=== PATIENT | male | born 1945 | race Caucasian/White ===

== ENCOUNTER 2017-04-06 16:15 | Observation (INO) ==
[2017-04-06] MEDS ORDERED: SALINE FLUSH 10ml SYRINGE IVF PRN (16:49)
[2017-04-06 16:57] VITALS: BMI 29.2
[2017-04-06] MEDS ORDERED: ONDANSETRON 4 MG/2 ML INJECTION IVP PRN (17:09)
[2017-04-06] MEDS ORDERED: MORPHINE SULFATE 4 MG SYRINGE IVP PRN (17:09)
[2017-04-06] MEDS: LR 1,000 ML IV SCH (17:28)
[2017-04-06] MEDS: ERTAPENEM 1 G in NS 100 ML IV SCH (18:00)
[2017-04-07] MEDS: LR 1,000 ML IV SCH ×2 (03:50→14:44)
[2017-04-07] MEDS: ERTAPENEM 1 G in NS 100 ML IV SCH ×2 (09:22→16:59)
[2017-04-07] MEDS ORDERED: LR 1,000 ML IV PRN (11:16)
[2017-04-07] MEDS ORDERED: BUPIVACAINE 0.25%/EPI 1:200,000 30ml SDV ONE (12:08)
--- NOTE | 2017-04-07 12:25 | Anesthesia Preoperative Report ---
Anesthesia Preoperative Record - Date and Time Date: 04/07/17 Preoperative Diagnosis: acute appendicitis Proposed Procedure: Lap appendectomy NPO Since Date: 04/07/17 NPO Since Time: 00:00 Allergies/Adverse Reactions: Allergies Allergy/AdvReac Type Severity Reaction Status Date / Time No Known Drug Allergies Allergy Verified 04/06/17 17:14 - Vital Signs Vital Signs: Temperature 97.9 F 04/07/17 11:10 Pulse Rate 54 L 04/07/17 11:10 Respiratory Rate 16 04/07/17 11:10 Blood Pressure 177/77 H 04/07/17 11:22 Pulse Oximetry 96 04/07/17 11:10 Oxygen Delivery Method Room Air Height and Weight: Height 5 ft 9.6 in Weight 91.2 kg Body Mass Index 29.2 - Medications Inpatient Medications: Current Medications Lactated Ringer's (Lactated Ringers) 1,000 mls @ 100 mls/hr IV .Q10H TONY Last Infusion: 04/07/17 11:00 Dose: 0 mls/hr Ertapenem 1 g/ Sodium Chloride 100 mls @ 200 mls/hr IV 1800 TONY Lactated Ringer's (Lactated Ringers) 1,000 mls @ 50 mls/hr IV .Q20H PRN Last Admin: 04/07/17 11:17 Dose: 50 mls/hr Morphine Sulfate (Morphine Sulfate Inj) 1 - 4 mg IVP Q1H PRN PRN Reason: Pain Ondansetron HCl (Zofran) 4 mg IVP Q6H PRN PRN Reason: Nausea &/or vomiting Sodium Chloride (Iv Flush) 10 - 80 ml IVF PRN PRN PRN Reason: [place] Home Medications: Home Medications Medication Instructions Recorded Confirmed Type Rosuvastatin [Crestor] 10 mg PO DAILY #0 12/18/14 04/06/17 History Apixaban [Eliquis] 1 tab PO BID 04/06/17 04/06/17 History Tadalafil [Cialis] 1 tab PO DAILY 04/06/17 04/06/17 History Is Patient on Beta Shahnaz?: No - Medical History Respiratory: DENIES: Asthma, Bronchitis, Chronic Obstructive Pulmonary Disease (COPD), Dyspnea, Orthopnea, Pulmonary Embolism, Pneumonia, Upper Respiratory Infection, Pulmonary Edema, Sleep Apnea, Tuberculosis, Other Cardiovascular: Reports: High Cholesterol Gastrointestional: DENIES: Obstructive Bowel, Hepatitis, Cirrhosis, Nausea or Vomiting Present, Gastroesophageal Reflux Disease, Gastrointestinal Bleeding, Hiatal Hernia, Ulcer , Morbid Obesity, Other Neuro/Musculoskeletal: Denies: HX.MS.OSAR, Back Problems, Cerebrovascular Accident, Depression, Headaches, Loss of Consciousness, Muscle Weakness, Neuromuscular Disorder, Paralysis, Paresthesia, Syncope, Seizures, Other Renal/Endocrine: DENIES: Diabetes Mellitus Type 1, Diabetes Mellitus Type 2, Renal Failure, Dialysis, Thyroid Disease, Weight Loss, Weight Gain, Other Other History: DENIES: Anesthesia Reactions, Now, Blood Transfusions, Chemotherapy , Cancer, Hemophilia, Malignant Hyperthermia, Sickle Cell Disease, Other - Surgical History GI Surgery/Treatments: Reports: Colonoscopy Musculoskeletal Surgery/Tx: Reports: Total Knee Replacement (2014-RIGHT KNEE) Anesthesia Reactions: None Hx Family Anesthesia Reaction: No - Social History Smoking Status: Never smoker Substance Use Type: does not use - Pertinent Findings Laboratory: CBC and BMP 04/07/17 04:04 EKG Rhythm: Sinus Bradycardia - Physical Exam Respiratory Exam: Present: lungs clear, bilateral breath sounds equal Cardiovascular Exam: Present: regular rate and rhythm, no murmur - Airway Assessment Mallampati Score: II TMD: 3 Fingerbreadths Neck Extension: fair Overall Assessment: no airway concerns - ASA ASA Score: 2 - Plan Anesthesia: General Inhalation Gases - Discussion Discussion: Discussed risks/options/alternatives of anesthesia and questions answered. Patient consents. Nursing pain assessment noted. Present for Discussion: family member Attestation Statement: Prior to the delivery of any anesthetic medication, I examined the patient, developed the plan, obtained the patient's consent and discussed the risk and benefits of the procedure with the patient/guardian. - Additional Information Seen by Anesthesia: Yes
[2017-04-07] MEDS ORDERED: KETAMINE 500 MG/10 ML INJECTION ONE (12:38)
[2017-04-07] MEDS ORDERED: FentaNYL 100 MCG/2 ML INJECTION ONE (12:38)
[2017-04-07] MEDS ORDERED: MIDAZOLAM 2mg/2ml INJECTION ONE (12:38)
[2017-04-07] MEDS ORDERED: PROPOFOL 20 ML ONE (12:40)
[2017-04-07] MEDS ORDERED: ROCURONIUM 50 MG/5 ML INJECTION IVP ONE (12:40)
[2017-04-07] MEDS ORDERED: ONDANSETRON 4 MG/2 ML INJECTION ONE (12:58)
[2017-04-07] MEDS ORDERED: DEXAMETHASONE 4 MG/ML INJECTION ONE (12:58)
[2017-04-07] MEDS ORDERED: BUPIVACAINE 0.25%/EPI 1:200,000 30ml SDV ID ONE (13:10)
[2017-04-07] MEDS ORDERED: EPHEDRINE 50mg/ml INJECTION ONE (13:11)
[2017-04-07] MEDS ORDERED: SALINE FLUSH 10ml SYRINGE ONE (13:11)
--- NOTE | 2017-04-07 13:50 | General Surgery Procedure Note ---
Date of Procedure: 04/07/17 Surgeon: Mirian Pulp Screen Operator: Angel Tejada APRN Postoperative Diagnosis: acute appendicitis, not ruptured Procedure: Laparoscopic appendectomy Estimated Blood Loss: See Anesthesia Record.
--- NOTE | 2017-04-07 13:59 | Discharge Instructions ---
Discharge Plan - Med Rec/Dispo Referrals/Follow Up: Henny Tejada APRN [Advanced Practice Nurse] - 04/19/17 10:45 am Additional Instructions: May start tomorrow (04-08-17) morning. Prescriptions: New Hydrocodone/APAP 5/325 [[place] 5/325] 1 - 2 tab PO Q5HR PRN #20 tab PRN Reason: Pain Ibuprofen 400 - 600 mg PO Q6HR PRN 10 Days PRN Reason: Pain PEG 3350 17gm PACKET [Miralax] 17 gm PO DAILY PRN 5 Days PRN Reason: Constipation Continue Rosuvastatin [Crestor] 10 mg PO DAILY #0 Tadalafil [Cialis] 1 tab PO DAILY Apixaban [Eliquis] 1 tab PO BID - Disposition Discharged Home, Self-Care
--- NOTE | 2017-04-07 14:23 | Anesthesia Postoperative Note ---
- Date and Time Date: 04/07/17 Time: 13:50 - Status Patient Participated in Evaluation: Patient Participated in Person Vital Signs: Temperature 98.6 F 04/07/17 13:47 Pulse Rate 67 04/07/17 14:00 Respiratory Rate 18 04/07/17 14:00 Blood Pressure 149/72 H 04/07/17 14:00 Pulse Oximetry 98 04/07/17 14:00 Oxygen Delivery Method Room Air Respiratory Function: Airway Patent Cardiovascular Function: Regular Pulse EKG Rhythm: Normal Sinus Rhythm Mental Status: Alert and Oriented Pain Intensity: 0 Hydration: IV Infusing Complications During Recover: None Apparent - Follow-Up Instructions Instructions: Per Surgeon
[2017-04-07] MEDS ORDERED: HYDROCODONE/APAP 5mg/325mg TABLET PO PRN (14:29)
[2017-04-07] MEDS ORDERED: IBUPROFEN 600 MG TABLET PO PRN (14:29)
[2017-04-07 14:37] VITALS: RESP 16; TEMP 96.3
[2017-04-07 15:29] VITALS: PULSE 56
[2017-04-07] MEDS ORDERED: POLYETHYL GLYCOL 3350 17gm PACKET PO SCH (17:00)
[2017-04-07 17:11] VITALS: BP 146/76; O2SAT 96
[2017-04-07] MEDS ORDERED: ERTAPENEM 1 G in NS 100 ML IV SCH (18:00)
--- NOTE | 2017-04-08 08:56 | Operative Note ---
DATE OF SERVICE 04/07/2017 SURGEON Diogo Vela MD PREOPERATIVE DIAGNOSIS Appendicitis. POSTOPERATIVE DIAGNOSIS Appendicitis. PROCEDURE Laparoscopic appendectomy. ANESTHESIA General endotracheal EBL AND FLUIDS Please see chart. BRIEF HISTORY/INDICATIONS Mr. Kamara is a 71-year-old gentleman who recently presented to my office yesterday as a result of his history and physical findings of right lower quadrant abdominal pain in conjunction with an abnormal CT scan revealing evidence for appendicitis. Patient was on anticoagulation. The patient was admitted to the hospital last evening and placed on broad-spectrum antibiotics. It was recommended that he undergo a laparoscopic appendectomy. He continued to have persistent pain within his right lower quadrant although the pain had improved in nature from yesterday. Nonetheless, it was still recommend that he undergo surgical intervention/appendectomy. For completeness please refer to notes included in the patient's chart. FINDINGS Upon laparoscopy, the liver edge was smooth and without nodularities. Small bowel, omentum, and colon which was visualized were within normal limits. The appendix itself was still found to be indurated in nature and contained a small amount of periappendiceal exudate. No evidence for verona perforation was present. A standard laparoscopic appendectomy was completed without incident. DESCRIPTION OF PROCEDURE After informed consent was obtained, patient was brought to the operative suite and placed on the table in a supine fashion. Abdomen was then prepped and draped in sterile fashion. 0.25% Marcaine with epinephrine was injected just beneath the level of the umbilicus. A 2 cm curved incision was then made through the area of analgesia. Dissection was then carried down to the deep subcuticular tissues and underlying fascia. Fascia was then grasped with two Cooper clamps and retracted anteriorly. A 1 cm incision was then made between the two Cooper clamps. Hemostat was then introduced through the fascial incision and gently spread. A U-stitch was then placed with 0 Vicryl through the fascial opening. A 12 mm Josh port was then placed in the peritoneal cavity. Pneumoperitoneum was established to a patient pressure of 15 mmHg utilizing carbon dioxide. An additional 5 mm port was then placed in the suprapubic region as well as an additional 10/12 mm port within the right upper quadrant. Each port site was preinjected with 0.25% Marcaine with epinephrine and placed under direct visualization. Abdominal cavity was explored via the laparoscope. Findings were noted as above. Appendix was then grasped and retracted anteriorly. A small opening was then created within the mesoappendix. A linear stapler was then placed through this small opening within the mesoappendix and placed adjacent to the base of the appendix. Linear stapler was then fired. GI load within the linear stapler was then removed and a vascular load was then replaced in the linear stapler and then placed across the mesoappendix and fired. There were a few small bleeding points coming forth through the staple line upon the mesoappendix. Additional hemoclips were then placed overlying the sites of bleeding, resulting in complete hemostasis. Appendix was then placed in a laparoscopic retrieval bag and removed via the infraumbilical port site. Irrigation was performed and all irrigant was suctioned till clear. Prior staple lines were both inspected and found to be intact and hemostatic in nature. All irrigant was then suctioned till clear. Irrigation was also performed within the pouch of Naresh and the irrigation was also suctioned till clear. Ports were removed under direct visualization. Previously placed U-stitch was then secured, imbricating the fascia at the infraumbilical port site. All skin incisions were then closed in a subcuticular fashion with 4-0 Monocryl. Dermabond was then placed overlying the incisions. The patient is in the process of awakening from his anesthetic and will be sent back to the recovery room once deemed in stable condition. NATALIE
== END 2017-04-07 18:07 | disposition home or self-care (01) ==
LOC: SRG
PROVIDERS: ADMIT Surgery; ATTEND Surgery